=== PATIENT | female | born 1995 | race Caucasian/White ===

== ENCOUNTER → 2019-03-06 14:37 | Outpatient (CLI) | payer OTHER, MEDICAID, SELFPAY | PROVIDERS: Visit Provider Physician Assistant | DX: Z32.01 Encounter for pregnancy test, result positive (principal) | CPT/HCPCS: 36415; 84702 ==

== ENCOUNTER → 2019-03-24 14:10 | Outpatient (CLI) | payer OTHER, MEDICAID, SELFPAY ==
--- NOTE | 2019-03-24 14:12 | DI.US.S_ITS ---
PROCEDURE: US OB <= 14 WEEKS FETUS INDICATIONS: DATES OUTSIDE/PRIOR DATING DATA: Last menstrual period (LMP): Unknown LMP-based estimated date of delivery (PRADIP): N./A.. First dating scan (date and location): 03/24/19. Estimated date of delivery (PRADIP) from first dating scan: 11/14/19. TECHNIQUE: Real-time scanning was performed of the fetus and maternal pelvic organs, with image documentation. Endovaginal scanning was also performed to better visualize the fetus and maternal ovaries. COMPARISON: None. FINDINGS: Embryo: Paige-rump length measures 6 mm corresponding to 6 weeks 3 days. Heart rate measures 120 beats per minute. Measurement variability in dating: +/- 4 weeks by LMP, +/- 7 days by mean sac diameter (use before 6 weeks gestation if crown-rump length not able to be measured), +/- 5 days by crown-rump length (up to 8 weeks 6 days gestation), +/- 7 days by crown-rump length (up to 13 weeks 6 days gestation). Maternal organs: Adnexa within normal limits, with left corpus luteal cyst measuring 28 mm. Limited images through the kidneys demonstrate no hydronephrosis. IMPRESSION: 6 week 3 day single living IUP. Dictated by: Dez Longo [facility] Interpreted: Primo Chilel MD on 03/24/2019 at 14:53 Approved by: Primo Chilel M.D. on 03/24/2019 at 16:44
== END ==
PROVIDERS: Visit Provider Obstetrics & Gynecology
DX: Z34.91 Encounter for supervision of normal pregnancy, unspecified, first trimester (principal); Z3A.01 Less than 8 weeks gestation of pregnancy
CPT/HCPCS: 36415; 76801; 76817; 80055; 81003; 86703; 86787; 86803; 86850; 86900; 86901; 87077; 87086; 87147

== ENCOUNTER → 2019-03-24 16:13 | Outpatient (CLI) | payer OTHER, MEDICAID, SELFPAY ==
[2019-03-24 17:37] LABS: Add Manual Diff / Slide Review NO; Basophils Absolute Auto 0 /uL (0-100); Basophils Percent Auto 0.3 % (0-2); Eosinophils Absolute Auto 100 /uL (0-450); Eosinophils Percent Auto 1.2 % (2-4); Hematocrit 41.5 % (36-46); Hemoglobin 13.9 g/dL (12.0-16.0); Lymphocytes Absolute Auto 1700 /uL (1100-4500); Lymphocytes Percent Auto 20.6 % (25-40); Mean Corpuscular HGB Conc 33.6 % (30-36); Mean Corpuscular Hemoglobin 30.6 PG (26-34); Monocytes Absolute Auto 500 /uL (0-900); Monocytes Percent Auto 5.7 % (3-14); Neutrophils Absolute Auto 5900 /uL (1500-7000); Neutrophils Percent Auto 72.2 % (50-75); Platelet Count 220 X10^3/uL (150-400); Red Blood Cell Count 4.56 X10^6/uL (4.0-5.2); Red Cell Distribution Width 12.4 % (11.6-14.8); White Blood Cell Count 8.2 X10^3/uL (4.5-11.0)
[2019-03-24 17:43] LABS: Appearance Urine UA CLEAR; Bilirubin Urine UA NEGATIVE (NEGATIVE); Color Urine UA YELLOW; Glucose Urine UA NEGATIVE (Negative); Ketones Urine UA NEGATIVE (NEGATIVE); Leukocyte Esterase Urine UA NEGATIVE (NEGATIVE); Nitrite Urine UA NEGATIVE (Negative); Occult Blood Urine UA NEGATIVE (Negative); Protein Urine UA NEGATIVE (Negative); Specific Gravity Urine UA 1.015 (1.000-1.035); Urobilinogen Urine UA 0.2 E.U./dL (0.2)
[2019-03-24 18:39] LABS: Hepatitis B Surface Antigen NEGATIVE s/c (NEGATIVE); Rubella Antibody IgG 67.5 IU/mL (>15)
[2019-03-24 19:02] LABS: HIV 1 and 2 Antibody NEGATIVE (NEGATIVE); Hep C Virus Ab w/Reflex Quant NEGATIVE s/c (NEGATIVE)
[2019-03-26 13:17] LABS: RPR Screen Nonreactive (Nonreactive)
== END ==
PROVIDERS: Visit Provider Obstetrics & Gynecology
DX: Z34.91 Encounter for supervision of normal pregnancy, unspecified, first trimester (principal)
CPT/HCPCS: 36415; 80055; 81003; 86703; 86787; 86803; 86850; 86900; 86901; 87086

== ENCOUNTER → 2019-06-29 13:53 | Outpatient (CLI) | payer OTHER, MEDICAID, SELFPAY ==
--- NOTE | 2019-06-29 13:55 | DI.US.S_ITS ---
PROCEDURE: US OB >= 14 WEEKS FETUS INDICATIONS: ANATOMY SCAN OUTSIDE/PRIOR DATING DATA: Last menstrual period (LMP): Unknown. LMP-based estimated date of delivery (PRADIP): N./A.. First dating scan (date and location): 03/24/19. Estimated date of delivery (PRADIP) from first dating scan: 11/14/19. TECHNIQUE: Real-time scanning was performed of the fetus, with image documentation and biometric measurements. Endovaginal scanning: No COMPARISON: [facility], , OB <= 14 WEEKS FETUS, 04/17/2019, 16:49. FINDINGS: General: A single living intrauterine gestation is present. Presentation: Breech. Placenta: Placental position is anterior, posterior left lateral, without previa. Amniotic fluid index: 15.3 cm, normal range is 5-24 cm. heart rate: 135 beats per minute. Maternal cervical canal: 3.4 cm long. Normal lower limit is 2.5 cm. biometrics: Biparietal diameter: 20 weeks 1 day Head circumference: 20 weeks 1 day Abdominal circumference: 20 weeks 1 day Femur length: 19 weeks 6 days Estimated gestational age from initial scan: 20 weeks 2 days Composite gestational age from present scan: 20 weeks 0 days Estimated weight and percentile: 326 g; 30th percentile Measurement variability for biometric dating: +/- 7 days from 14 weeks to 15 weeks 6 days gestation, +/- 10 days from 16 weeks to 21 weeks 6 days gestation, +/- 2 weeks from 22 weeks to 27 weeks 6 days gestation, +/- 3 weeks for 28 weeks gestation or later. weight reference: 4500 g or EFW >90/95% is considered macrosomia or large for gestational age. EFW <10% is small for gestational age. EFW 5% or less is considered intra-uterine growth restriction. Anatomic survey: Neuro: Ventricles are non-dilated at less than 10 mm. Cisterna magna is normal at 3-11 mm. Cerebellum is normal in size and morphology. Nuchal skin fold: Normal at less than 6 mm between 14-21 weeks gestational age. Face: Nose and lips, facial profile are normal. Spine: No evidence for spina bifida. Heart: 4-chambered heart is present, with normal ventricular outflow tracts. Diaphragm: Diaphragm is intact. Stomach: Left-sided stomach is present. Kidneys: No hydronephrosis. Normal is less than 5 mm in 2nd trimester, less than 7 mm in 3rd trimester. Cord: 3-vessel cord has orthotopic insertion. Bladder: Normal in size. Extremities: All 4 extremities identified. IMPRESSION: 1. Normal interval growth. 2. Normal anatomic survey. Dictated by: Dez Longo [facility] Interpreted: Karen Hebert MD on 06/29/2019 at 16:27 Approved by: Karen Hebert MD, PhD on 06/29/2019 at 17:58
== END ==
PROVIDERS: PCP Physician Assistant Medical; Visit Provider Obstetrics & Gynecology
DX: Z34.02 Encounter for supervision of normal first pregnancy, second trimester (principal); Z3A.20 20 weeks gestation of pregnancy
CPT/HCPCS: 76811

== ENCOUNTER → 2019-08-03 13:36 | Outpatient (CLI) | payer OTHER, MEDICAID, SELFPAY ==
[2019-08-03 15:06] LABS: Hematocrit 29.3 % (36-46); Hemoglobin 10.1 g/dL (12.0-16.0)
[2019-08-03 17:18] LABS: GTT (PREG) 1 Hour PP 50gm Dose 82 mg/dL (76-139)
== END ==
PROVIDERS: PCP Physician Assistant Medical; Visit Provider Obstetrics & Gynecology
DX: Z34.02 Encounter for supervision of normal first pregnancy, second trimester (principal); Z3A.24 24 weeks gestation of pregnancy
CPT/HCPCS: 36415; 82950; 85014; 85018

== ENCOUNTER → 2019-08-24 16:32 | Outpatient (CLI) | payer OTHER, MEDICAID, SELFPAY ==
[2019-08-24 17:11] LABS: Add Manual Diff / Slide Review NO; Basophils Absolute Auto 0 /uL (0-100); Basophils Percent Auto 0.1 % (0-2); Eosinophils Absolute Auto 100 /uL (0-450); Eosinophils Percent Auto 1.2 % (2-4); Hematocrit 31.4 % (36-46); Hemoglobin 10.8 g/dL (12.0-16.0); Lymphocytes Absolute Auto 1300 /uL (1100-4500); Lymphocytes Percent Auto 15.9 % (25-40); Mean Corpuscular HGB Conc 34.3 % (30-36); Mean Corpuscular Hemoglobin 31.7 PG (26-34); Mean Corpuscular Volume 92.5 fL (80-100); Monocytes Absolute Auto 600 /uL (0-900); Neutrophils Absolute Auto 6200 /uL (1500-7000); Neutrophils Percent Auto 75.8 % (50-75); Platelet Count 196 X10^3/uL (150-400); Red Blood Cell Count 3.39 X10^6/uL (4.0-5.2); Red Cell Distribution Width 13.3 % (11.6-14.8); White Blood Cell Count 8.2 X10^3/uL (4.5-11.0)
[2019-08-24 18:52] LABS: HIV 1 & 2 Ab/Ag 4th Gen Combo NEGATIVE (NEGATIVE)
[2019-08-26 19:45] LABS: RPR Screen Nonreactive (Nonreactive)
== END ==
PROVIDERS: Family Provider Obstetrics & Gynecology; PCP Physician Assistant Medical; Visit Provider Obstetrics & Gynecology
DX: Z34.90 Encounter for supervision of normal pregnancy, unspecified, unspecified trimester (principal)
CPT/HCPCS: 36415; 85025; 86592; 87389

== ENCOUNTER 2019-09-10 00:48 | Observation (INO) | payer OTHER, MEDICAID, SELFPAY ==
[2019-09-10] MEDS: NIFEdipine 10 MG CAPSULE PO ×4 (01:38→02:55)
[2019-09-10] MEDS: LACTATED RINGERS 2,000 ML 1000 ML IV (01:38)
[2019-09-10] MEDS: CALCIUM CARBONATE 500 MG TAB 1000 MG PO (03:58)
[2019-09-10] MEDS: LACTATED RINGERS 1,000 ML 100 ML IV (03:58)
--- NOTE | 2019-09-10 07:00 | DI.US.S_ITS ---
PROCEDURE: US OB LIMITED INDICATIONS: BLEEDING, CONTRACTIONS OUTSIDE/PRIOR DATING DATA: Last menstrual period (LMP): Not available. LMP-based estimated date of delivery (PRADIP): Not available. First dating scan (date and location): 03/24/19. Estimated date of delivery (PRADIP) from first dating scan: 11/14/19. TECHNIQUE: Real-time scanning was performed of the fetus, with image documentation. Endovaginal scanning: Not needed for this study COMPARISON: [facility], OB >= 14 WEEKS FETUS, 09/07/2019, 16:34. [facility], OB >= 14 WEEKS FETUS, 06/29/2019, 14:11. [facility], OB <= 14 WEEKS FETUS, 04/17/2019, 16:49. [facility], US OB <= 14 WEEKS FETUS, 03/24/2019, 14:17. FINDINGS: A single living intrauterine gestation is present. Presentation: Breech. Placenta: Placental position is left-sided, without previa. Amniotic fluid index: 12.9 cm, normal range is 5-24 cm. heart rate: 141 beats per minute. Maternal cervical canal: 4.0 cm long. Normal lower limit is 2.5 cm. Estimated gestational age from initial scan: 30 weeks 5 days. IMPRESSION: No evidence for placental abruption, source of current symptoms is not seen. The delivery date is projected to be centered on 11/14/19 based on the first trimester OB ultrasound. Dictated by: Primo Chilel M.D. on 09/10/2019 at 8:26 Approved by: Primo Chilel M.D. on 09/10/2019 at 8:32
== END 2019-09-10 09:15 | disposition home or self-care (01) ==
PROVIDERS: Admitting Provider Obstetrics & Gynecology; Family Provider Obstetrics & Gynecology; PCP Physician Assistant Medical; Visit Provider Obstetrics & Gynecology
DX: O20.9 Hemorrhage in early pregnancy, unspecified (principal); O47.03 False labor before 37 completed weeks of gestation, third trimester; Z3A.30 30 weeks gestation of pregnancy
CPT/HCPCS: 59025; 59050; 76815; 76817; 96360; G0378; G0379

== ENCOUNTER → 2019-10-12 14:18 | Outpatient (CLI) | payer OTHER, MEDICAID, SELFPAY ==
[2019-10-13 15:19] LABS: Strep Grp B PCR NEG for Grp B Strep
== END ==
PROVIDERS: Family Provider Obstetrics & Gynecology; PCP Physician Assistant Medical; Visit Provider Obstetrics & Gynecology
DX: Z34.03 Encounter for supervision of normal first pregnancy, third trimester (principal)
CPT/HCPCS: 87653

== ENCOUNTER 2019-10-26 06:40 | Observation (INO) | payer OTHER, MEDICAID, SELFPAY | END 2019-10-26 12:18 | disposition home or self-care (01) | PROVIDERS: Admitting Provider Obstetrics & Gynecology; Family Provider Obstetrics & Gynecology; PCP Physician Assistant Medical; Visit Provider Obstetrics & Gynecology | DX: Z34.03 Encounter for supervision of normal first pregnancy, third trimester (principal); Z3A.38 38 weeks gestation of pregnancy | CPT/HCPCS: 59050; 59412; 76815; G0378; G0379 ==

== ENCOUNTER 2019-10-28 17:14 | Outpatient (CLI) | payer OTHER, MEDICAID, SELFPAY ==
--- NOTE | 2019-10-28 18:02 | PM.OBTRLD ---
Visit Information Visit Information Date of evaluation: 10/28/19 Primary OB Provider: Samantha Hough On-call OB Provider: Mariana Torres Reason for Evaluation: Yes rule out labor Comments/Additional reasons for admission: Right flank pain Vital Signs Vital Signs: Blood pressure 126/79, pulse 61, temperature 97.2? PFSH Social History Smoking Status: Former smoker Review of Systems Review of Systems Narrative: Patient is 37 and half weeks who had an attempt at version 2 days ago that was unsuccessful. She is having some abdominal discomfort but is not changed. For the last hour and a half the patient has had right flank discomfort and searing pain not crampy in nature. She denies any vaginal bleeding. She has been having some contractions but it does not seem that they have increased at all. She denies any unusual vaginal discharge. She denies any pain or burning when she urinates. ROS Unobtainable: All systems reviewed & are unremarkable except as noted in HPI and below Exam Narrative Exam Narrative: Patient does not have CVA tenderness. She is pointing to her right flank when she describes the pain. Abdomen is soft, nontender. Uterus is soft and nontender. Evaluation Evaluation Baseline heart rate: 140 Variability: Moderate (11-25) monitor accelerations: Present monitor decelerations: Absent Contraction Frequency (minutes): 10 Uterine Contraction Intensity: Mild Category of Tracing: I Diagnosis, Plan/Disposition Final Diagnosis (1) Right flank pain: Current Visit: Yes Status: Acute (2) 37 weeks gestation of : Current Visit: Yes Status: Acute Plan/Disposition Plan: Patient with right flank pain the most likely hydronephrosis. No evidence of other causes. Urine will be checked to make sure there is no infection. Patient to go home in lay on her left side and call if she has increasing pain, vaginal bleeding, increasing contractions. OB Disposition: home
[2019-10-28 18:31] LABS: Bacteria Urine None Seen; RBC Urine None Seen (0-5/HPF)
[2019-10-28 18:36] LABS: Appearance Urine UA CLEAR; Bilirubin Urine UA NEGATIVE (NEGATIVE); Color Urine UA YELLOW; Glucose Urine UA NEGATIVE (Negative); Ketones Urine UA NEGATIVE (NEGATIVE); Leukocyte Esterase Urine UA TRACE (NEGATIVE); Nitrite Urine UA NEGATIVE (Negative); Occult Blood Urine UA NEGATIVE (Negative); Protein Urine UA NEGATIVE (Negative); Urobilinogen Urine UA 0.2 E.U./dL (0.2)
[2019-10-28 18:42] LABS: Culture Indicated Urine Cult Not Indicated; WBC Urine 0-1/HPF (0-5/HPF)
== END 2019-10-28 18:46 | disposition home or self-care (01) ==
LOC: OB 10-29 11:41
PROVIDERS: Family Provider Obstetrics & Gynecology; PCP Physician Assistant Medical; Visit Provider Specialist
DX: O26.893 Other specified pregnancy related conditions, third trimester (principal); R10.9 Unspecified abdominal pain; Z3A.37 37 weeks gestation of pregnancy
CPT/HCPCS: 59025; 81001; G0378; G0379

== ENCOUNTER 2019-11-06 05:46 | Inpatient (IN) | payer OTHER, MEDICAID, SELFPAY ==
[2019-11-06] VITALS (7 sets, daily range): BP systolic 82–126; BP diastolic 44–63; PULSE 69–80; RESP 13–17; TEMP 36; O2SAT 98–100
[2019-11-06] MEDS: LACTATED RINGERS 1,000 ML 1000 ML IV (06:12)
[2019-11-06 06:31] LABS: Add Manual Diff / Slide Review NO; Basophils Absolute Auto 0 /uL (0-100); Basophils Percent Auto 0.2 % (0-2); Eosinophils Absolute Auto 100 /uL (0-450); Eosinophils Percent Auto 1.4 % (2-4); Hematocrit 34.9 % (36-46); Hemoglobin 11.8 g/dL (12.0-16.0); Lymphocytes Absolute Auto 2000 /uL (1100-4500); Lymphocytes Percent Auto 23.2 % (25-40); Mean Corpuscular HGB Conc 33.8 % (30-36); Mean Corpuscular Hemoglobin 30.9 PG (26-34); Mean Corpuscular Volume 91.6 fL (80-100); Monocytes Absolute Auto 700 /uL (0-900); Monocytes Percent Auto 8.5 % (3-14); Neutrophils Absolute Auto 5700 /uL (1500-7000); Neutrophils Percent Auto 66.7 % (50-75); Platelet Count 170 X10^3/uL (150-400); Red Blood Cell Count 3.81 X10^6/uL (4.0-5.2); Red Cell Distribution Width 14.8 % (11.6-14.8); White Blood Cell Count 8.5 X10^3/uL (4.5-11.0)
[2019-11-06] MEDS: LACTATED RINGERS 1,000 ML 100 ML IV ×4 (06:43→15:26)
--- NOTE | 2019-11-06 07:41 | P.HPOB_ITS ---
OB HPI Date/Time Date of admission: 11/06/19 Date Patient Seen: 11/06/19 Time Patient Seen: 07:35 History of Present Condition Chief complaint: [id number] PRIMARY : 1 Para: 0 Estimated Date of Delivery: 11/14/19 Estimated Gestational Age (weeks): 38w6d Narrative: Letitia Ro is a 24 year old at 38w6d presenting for scheduled primary for breech presentation. Pt feeling baby move regularly. No LOF, vaginal bleeding, contractions. complicated only by anemia, with pt taking an iron supplement. 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 Indications Operative indications ( section): malpresentation (breech) History of Present Ultrasounds: normal 1st trimester US and normal mid trimester US Obstetrical complications: none Medical complications: other (hx of HSV on prophylaxis) Preadmission Labs Blood type: B (+) positive -: Antibody screen: negative, GBS status: negative, HBsAG: negative, HIV: n egative and RPR/VDLR: negative -: Chlamydia screen: not detected and Gonorrhea screen: not detected -: Rubella: immune and Varicella: immune HCT: 29.3 HCAB: negative PAP: Abnormal (ASCUS HPV -) 1 hr GTT: 82 Evaluation Evaluation Baseline heart rate: 125 Variability: Moderate (11-25) monitor accelerations: Present monitor decelerations: Absent Laboratory results: Laboratory Tests 11/06/19 06:00 WBC 8.5 RBC 3.81 L Hgb 11.8 L Hct 34.9 L MCV 91.6 MCH 30.9 MCHC 33.8 RDW 14.8 Plt Count 170 Neut % (Auto) 66.7 Lymph % (Auto) 23.2 L [place] % (Auto) 8.5 Eos % (Auto) 1.4 L Baso % (Auto) 0.2 Neut # (Auto) 5700 Lymph # (Auto) 2000 [place] # (Auto) 700 Eos # (Auto) 100 Baso # (Auto) 0 PFSH Social History Smoking Status: Former smoker Meds Home Medications and Allergies Home Medications Medication Instructions Recorded Confirmed Type acyclovir 400 mg PO PRN PRN 03/06/19 11/06/19 History prenat.vits,bolivar,uuj-qdsk-bnyul 1 tab PO DAILY 03/24/19 11/06/19 History Double Electric breast Pump and #1 each 06/29/19 11/06/19 Rx Supplies Allergies Allergy/AdvReac Type Severity Reaction Status Date / Time No Known Drug Allergies Allergy Verified 11/02/19 12:13 Exam Vital Signs (past 8 hours): - 11/06/19 06:02 Blood Pressure 126/63 Narrative Exam Narrative: Gen: NAD, sitting comfortably in bed, appears well CV: RRR, no murmurs Resp: clear to auscultation bilaterally Abd: soft, nontender, gravid, nondistended Ext: no edema Objective Labs Result Diagrams: 11/06/19 06:00 Labs: Laboratory Results - last 24 hr 11/06/19 06:00 WBC 8.5 RBC 3.81 L Hgb 11.8 L Hct 34.9 L MCV 91.6 MCH 30.9 MCHC 33.8 RDW 14.8 Plt Count 170 Neut % (Auto) 66.7 Lymph % (Auto) 23.2 L [place] % (Auto) 8.5 Eos % (Auto) 1.4 L Baso % (Auto) 0.2 Neut # (Auto) 5700 Lymph # (Auto) 2000 [place] # (Auto) 700 Eos # (Auto) 100 Baso # (Auto) 0 Assessment and Plan Assessment and Plan Assessment and Plan narrative: 24yo at 38w6d her for primary for persistent breech presentation, failed version. Breech confirmed today. Pt consented for surgery in clinic previously. Reviewed risks today including but not limited to infection, bleeding/hemorrhage, injury to other organs including bowel and bladder, and injury to baby. Pt is agreeable to blood transfusion if medically indicated. She again consents for surgery today. She will receive 2g Ancef prior to surgery.
--- NOTE | 2019-11-06 07:41 | PM.PREOP ---
Pre-operative Note Interval Note History & Physical reviewed/Exam performed by Physician: Yes Changes to H&P: No
[2019-11-06] MEDS: CEFAZOLIN 2 GM/100 ML FROZ.PIGGY IV (08:05)
--- NOTE | 2019-11-06 08:33 | SUR.OPER ---
Supine on Padded OR bed, head on pillow, safety belt at thigh, arms secured on padded arm boards at <90 degrees abduction. Bump under right buttock. Legs uncrossed , gel pad to heels, tape over blanket to lower legs.
--- NOTE | 2019-11-06 11:55 | PM.OP.1 ---
Operative Date/Time/Diagnoses Date of procedure: 11/06/19 Time of procedure: 07:45 Pre-op diagnosis: 38w6d gestation Breech presentation Post-op diagnosis: same Procedure & Clinicians Procedure: Primary Same procedure as scheduled: Yes Indications: Breech presentation Surgeon: Lien Lai Offensive Coordinator: Corrine Denney Click Yes if Unassisted: No Anesthesia Type: Spinal Operative Notes Findings: Normal uterus, ovaries, and tubes Closure Type: primary Specimen(s): none sent Applied: catheter Estimated Blood Loss (mL): 750 Blood products transfused: none Procedure in detail: The patient was taken to the operating room where spinal anesthesia was placed. She was then prepared and draped in the normal sterile fashion in the dorsal supine position with a leftward tilt. Anesthesia was tested and found to be adequate. A Pfannensteil skin incision was then made with the scalpel and carried through to the underlying layer of fascia with the scalpel. The fascia was incised in the midline and the incision extended laterally with the Tapia scissors. The superior aspect of the fascial incision was then grasped with Mg clamps, elevated, and the underlying rectus muscles dissected off bluntly and sharply where needed. Attention was then turned to the inferior aspect of the incision which, in a similar fashion, was grasped, tented up with Mg clamps, and the rectus muscle dissected off bluntly and sharply with Tapia scissors. The rectus muscles were then in the midline, and the peritoneum was identified and entered bluntly. The peritoneal incision was then extended with good visualization of the bladder. The bladder blade was then inserted and the vesicouterine peritoneum identified, grasped with pick-ups and entered sharply with the Metzenbaum scissors. The incision was then extended laterally and the bladder flap created digitally. The bladder blade was then reinserted and the lower uterine segment incised in a transverse fashion with the scalpel. The uterine incision was then extended by pulling superolaterally on both sides. Membranes were ruptured and fluid was clear. The bladder blade was removed and the infant's legs and abdomen were delivered. Anterior arm was then delivered, and then the rotated for delivery of the other arm. The infant was then turned onto the maternal abdomen, and the head delivered atraumatically. The nose and mouth were suctioned with bulb suction and the cord was clamped and cut. The infant was handed off to the waiting nursing staff. Cord blood was collected for Rh status. The placenta was then delivered with gentle cord traction. The uterus was then exteriorized and cleared of all clots and debris. The uterine incision was repaired with O-Vicryl in a running, locked fashion. A second layer of the same suture was used to obtain excellent hemostasis. The uterus was returned to the abdomen. The gutters were cleared of all clots. Hysterotomy was investigated and found to be hemostatic. The peritoneum was closed with 3-O Vicryl. The fascia was reapproximated with O Vicryl in a running fashion. The subcutaneous tissue was reapproximated with 3-O Vicryl in interrupted fashion. The skin was closed with 4-O Vicryl. ROM APPEARANCE: Clear BABY A DELIVERY TIME: 8:37am BABY A OUTCOME: Viable BABY A SEX: Female BABY A WEIGHT: 7lb9.2oz BABY A NUCHAL CORD: No BABY A # CORD VESSELS: 3 BABY A 1 MINUTE: 6 BABY A 5 MINUTES: 9 PLACENTA DELIVERY TIME: 8:42am PLACENTAL DELIVERY TYPE: Spontaneous PLACENTA APPEARANCE: Intact COMPLICATIONS: None SPONGE AND NEEDLE COUNTS: Correct x3. DRESSING: Aquacel ANTICOAGULATION: SCDs applied prior to Surgery: Yes Preop antibiotics given (see MAR). The patient was taken to recovery room having tolerated procedure well. Complications: none Post-operative Condition: stable Disposition: PACU Plan for aftercare: Normal postoperative care support
[2019-11-06] MEDS: METOCLOPRAMIDE 10 MG/2 ML INJ 5 MG IV (13:47)
[2019-11-06] MEDS: KETOROLAC 30 MG/ML VIAL IV ×2 (15:24→21:25)
[2019-11-06] MEDS: ONDANSETRON 4 MG/2 ML INJ IV (16:05)
[2019-11-07] MEDS: KETOROLAC 30 MG/ML VIAL IV (04:09)
[2019-11-07 06:25] LABS: Hematocrit 24.3 % (36-46); Hemoglobin 8.4 g/dL (12.0-16.0)
[2019-11-07 08:40] VITALS: BP 112/62; PULSE 84; RESP 16; TEMP 36.9
--- NOTE | 2019-11-07 09:28 | PM.OBPN.1 ---
Subjective - OB Subjective Date Patient Seen: 11/07/19 Time Patient Seen: 09:00 Interval history: The pt reports that she is feeling very. Baby has been latching well, and giving good feeding queues. She is ambulating without difficulty and minimal pain. Her pain overall is well controlled. She has passed flatus. Her lochia is appropriate. She still would like to try and avoid the narcotic pain medication if possible. Exam Vital Signs (past 8 hours): Oxygen Delivery Method Room Air Narrative Exam Narrative: Gen: NAD, sitting comfortably in bed, appears well holding her infant CV: RRR, no murmurs Resp: clear to auscultation bilaterally Abd: soft, appropriately tender, nondistended, normoactive bowel sounds, dressing c/d/i Ext: no edema Objective Labs Result Diagrams: 11/07/19 06:15 Labs: Laboratory Results - last 24 hr 11/07/19 06:15 Hgb 8.4 L Hct 24.3 L Assessment & Plan Assessment and Plan (1) S/P : Status: Acute Current Visit: Yes (2) anemia: Status: Acute Current Visit: Yes Plan Comments: 24yo POD #1 s/p primary for breech presentation. Pt doing very well thus far. Does have significant anemia due to acute blood loss from surgery, however had anemia prior to surgery as well. - Continue PO iron supplement - Normal care - Encouraged ambulation - support - Will use Ibuprofen/Tylenol primarily for pain control, Percocet only if needed Time Spent With Patient Time: Total time spent is greater than 50% in coordination of care (as documented) at patient's floor/unit and/or counseling patient: Time with patient: 15-24 minutes
[2019-11-07] MEDS: IBUPROFEN 600 MG TABLET PO ×2 (10:15→16:40)
[2019-11-07] MEDS: PRENATAL VIT,CALC/IRON/FOLIC 1 TABLET 1 TAB PO (10:16)
[2019-11-07] MEDS: FERROUS GLUCONATE 324 MG TABLET PO (10:16)
[2019-11-07] MEDS: DOCUSATE 250 MG CAPSULE PO (10:16)
[2019-11-07] MEDS: OXYCODONE/ACETAMINOPHEN 5/325 TABLET 1 TAB PO ×3 (12:17→21:55)
[2019-11-07] MEDS: LANOLIN OINT 7 GM 1 APPLIC TOP (12:19)
[2019-11-08] MEDS: IBUPROFEN 600 MG TABLET PO ×3 (00:06→12:26)
[2019-11-08] MEDS: OXYCODONE/ACETAMINOPHEN 5/325 TABLET 1 TAB PO ×2 (02:25→11:21)
[2019-11-08] MEDS: FERROUS GLUCONATE 324 MG TABLET PO (08:51)
[2019-11-08] MEDS: PRENATAL VIT,CALC/IRON/FOLIC 1 TABLET 1 TAB PO (08:51)
--- NOTE | 2019-11-08 10:09 | PM.OBDS.1 ---
Discharge Providers Provider Date of admission: 11/06/19 05:46 Discharge Date: 11/08/19 Primary care physician: Krystle Rose PA-C Consults: 11/06/19 10:13 Consult to Geosciences Faculty Member Routine Comment: Discharge provider: Lien Lai MD Summary Hospital Course Date Patient Seen: 11/08/19 Time Patient Seen: 09:30 Procedures: Primary Hospital Course: The patient was admitted for primary due to persistent breech presentation. The surgery was without complications and she delivered a viable baby girl. , the patient recovered well. At the time of discharge she was voiding, ambulating, and passing flatus without difficulty. Her pain was adequately controlled. Her lochia was decreasing appropriately. She was breast-feeding with good latch, and felt her milk had come in. She will follow up in clinic in 1 week for incision check. She will continue her iron supplement at home for anemia. Peripartum Data Delivery Method: Section Procedures: Primary complications: none [place] 1: Gender: Female Disposition of : home Discharge Diagnosis (1) S/P : Status: Acute (2) anemia: Status: Acute Status at Discharge Cognitive/behavioral status at discharge: oriented Functional status at discharge: independent ambulation Overall status at discharge: patient is progressing back to baseline Time Spent with Patient Time attestation: Total time spent providing and/or coordinating discharge services: Time spent: Greater than 30 minutes Specific discharge activities: No intercourse for 6 weeks No heavy lifting or strenuous activity Objective Labs Result Diagrams: 11/07/19 06:15 Exam Vital Signs (past 8 hours): Oxygen Delivery Method Room Air Narrative Exam Narrative: Gen: NAD, sitting comfortably in bed, appears well holding her CV: RRR, no murmurs Resp: clear to auscultation bilaterally Abd: soft, appropriately tender, nondistended, normoactive bowel sounds, dressing c/d/i Ext: no edema Discharge Plan Discharge orders & Medications Discharge Orders: Discharge (Order); Ordered 11/08/19 Ordered By: Lien Lai Prescriptions: New acetaminophen 325 mg Tablet 650 mg PO Q6HR PRN (Reason: Fever/Mild Pain (1-3)) Qty: 30 RF: 0 oxycodone-acetaminophen 5-325 mg Tablet 1 tab PO Q4HR PRN (Reason: Pain, Moderate (4-6)) Qty: 30 RF: 0 ibuprofen 600 mg Tablet 600 mg PO Q6HR PRN (Reason: Fever/Mild Pain (1-3)) Qty: 60 RF: 0 docusate sodium 250 mg Capsule 250 mg PO DAILY Qty: 30 RF: 0 Vwv-J-Lwehux Cream 1 applic topical PRN PRN (Reason: ) Qty: 30 RF: 0 ferrous gluconate 324 mg (38 mg iron) Tablet 324 mg PO DAILY Qty: 30 RF: 0 Continued prenat.vits,bolivar,zqz-gqkz-hrnju tablet 1 tab PO DAILY RF: 0 (DME) Double Electric breast Pump and Supplies See Rx Instructions .ROUTE .MEDSUPPLY Qty: 1 RF: 0 Discontinued acyclovir 400 mg PO PRN PRN (Reason: Outbreak) RF: 0 Follow up/Referrals: Lien Lai MD [Physician] - 11/13/19 1:45 pm Krystle Rose PA-C [Primary Care Provider] - Visit Report/Discharge Packet Visit Report Forms: Patient Portal/API, Stroke Signs & Symptoms Discharge Data Primary Care Provider: Krystle Rose
== END 2019-11-08 13:02 | disposition home or self-care (01) | DRG 540 ==
PROVIDERS: Admitting Provider Family Medicine; Family Provider Obstetrics & Gynecology; PCP Physician Assistant Medical; Visit Provider Family Medicine
PROC: 10D00Z1 Extraction of Products of Conception, Low, Open Approach (ICD-10-PCS; CPT 59514; principal; 2019-11-06 07:45)
DX: O64.1XX0 Obstructed labor due to breech presentation, not applicable or unspecified (principal); Z3A.38 38 weeks gestation of pregnancy; Z37.0 Single live birth; O98.32 Other infections with a predominantly sexual mode of transmission complicating childbirth; B00.9 Herpesviral infection, unspecified; O90.81 Anemia of the puerperium; D62 Acute posthemorrhagic anemia
CPT/HCPCS: 36415; 59050; 59514; 85014; 85018; 85025; 86850; 86900; 86901; J0690; J1885; J2274; J2405; J2590; J2765

== ENCOUNTER → 2023-01-28 15:37 | Outpatient (CLI) | payer OTHER, MEDICAID, SELFPAY ==
--- NOTE | 2023-01-28 15:38 | DI.US.S_ITS ---
PROCEDURE: US OB <= 14 WEEKS FETUS INDICATIONS: dating and viability OUTSIDE/PRIOR DATING DATA: Last menstrual period (LMP): 12/12/2022 LMP-based estimated date of delivery (PRADIP): 09/18/2023. First dating scan (date and location): 01/28/2023. Estimated date of delivery (PRADIP) from first dating scan: 09/20/2023. TECHNIQUE: Real-time scanning was performed of the fetus and maternal pelvic organs, with image documentation. Endovaginal scanning was also performed to better visualize the fetus and maternal ovaries. COMPARISON: [facility], , US OB <= 14 WEEKS FETUS, 04/17/2019, 16:49. FINDINGS: Embryo: [place]-rump length measures 6 mm corresponding to 6 weeks 3 days. Tiny perigestational sac bleed site. Heart rate: 128 Maternal organs: Ovaries within normal limits. IMPRESSION: 6 week 3 day single living IUP. We strive to produce accurate, complete, and clear reports of imaging services. To assist us in improving patient care, this report was composed using standard report templates and voice recognition software. Therefore, it may contain abnormal punctuation, insertions and/or omissions. Occasional wrong-word or sound-alike substitutions may occur. Though we review the report and make efforts to correct it, we do recommend that the report be read carefully in proper context to recognize any text inaccuracies. Dictated by: Dez REYNOLDS Interpreted: Herve Bran MD on 01/28/2023 at 16:35 Transcribed by: ANTOINETTE on 01/28/2023 at 16:36 Approved by: Trey Bran M.D. on 01/30/2023 at 16:22
== END ==
PROVIDERS: Family Provider Obstetrics & Gynecology; PCP Family Medicine; Referring Provider Obstetrics & Gynecology; Visit Provider Obstetrics & Gynecology
DX: Z34.81 Encounter for supervision of other normal pregnancy, first trimester (principal); Z3A.01 Less than 8 weeks gestation of pregnancy
CPT/HCPCS: 76801

== ENCOUNTER → 2023-02-20 15:19 | Outpatient (CLI) | payer OTHER, MEDICAID, SELFPAY | PROVIDERS: Family Provider Obstetrics & Gynecology; PCP Family Medicine; Visit Provider Obstetrics & Gynecology | DX: Z34.81 Encounter for supervision of other normal pregnancy, first trimester (principal) | CPT/HCPCS: 87086 ==

== ENCOUNTER → 2023-03-25 15:26 | Outpatient (CLI) | payer OTHER, MEDICAID, SELFPAY ==
[2023-03-25 17:09] LABS: Add Manual Diff / Slide Review NO; Basophils Absolute Auto 0 /uL (0-100); Basophils Percent Auto 0.3 % (0-2); Eosinophils Absolute Auto 100 /uL (0-450); Eosinophils Percent Auto 1.7 % (2-4); Hematocrit 36.4 % (36-46); Hemoglobin 12.9 g/dL (12.0-16.0); Lymphocytes Absolute Auto 1400 /uL (1100-4500); Lymphocytes Percent Auto 22.5 % (25-40); Mean Corpuscular HGB Conc 35.4 % (30-36); Mean Corpuscular Hemoglobin 31.1 PG (26-34); Mean Corpuscular Volume 87.9 fL (80-100); Monocytes Absolute Auto 300 /uL (0-900); Monocytes Percent Auto 5.1 % (3-14); Neutrophils Absolute Auto 4500 /uL (1500-7000); Neutrophils Percent Auto 70.4 % (50-75); Platelet Count 193 X10^3/uL (150-400); Red Blood Cell Count 4.14 X10^6/uL (4.0-5.2); Red Cell Distribution Width 13.3 % (11.6-14.8); White Blood Cell Count 6.4 X10^3/uL (4.5-11.0)
[2023-03-25 17:59] LABS: Hepatitis B Surface Antigen NEGATIVE s/c (NEGATIVE); Rubella Antibody IgG 47.8 IU/mL (>15)
[2023-03-25 18:59] LABS: HIV 1 & 2 Ab/Ag 4th Gen Combo NEGATIVE (NEGATIVE); Hep C Virus Ab w/Reflex Quant NEGATIVE s/c (NEGATIVE)
[2023-03-26 07:43] LABS: RPR Screen Non Reactive (Non Reactive)
[2023-03-26 11:32] LABS: Varicella IgG Antibody 885 index (Immune >165)
== END ==
PROVIDERS: Family Provider Obstetrics & Gynecology; PCP Family Medicine; Referring Provider Obstetrics & Gynecology; Visit Provider Obstetrics & Gynecology
DX: Z34.81 Encounter for supervision of other normal pregnancy, first trimester (principal)
CPT/HCPCS: 36415; 80055; 86787; 86803; 86850; 86900; 86901; 87389

== ENCOUNTER → 2023-05-01 14:35 | Outpatient (CLI) | payer OTHER, MEDICAID, SELFPAY ==
--- NOTE | 2023-05-01 14:36 | DI.US.S_ITS ---
PROCEDURE: US OB >= 14 WEEKS FETUS INDICATIONS: ANATOMY OUTSIDE/PRIOR DATING DATA: Last menstrual period (LMP): 12/12/2022. LMP-based estimated date of delivery (PRADIP): 09/18/2023. First dating scan (date and location): 01/28/2023. Estimated date of delivery (PRADIP) from first dating scan: 09/20/2023. The calculations are made using the clinical PRADIP of 09/18/2023. TECHNIQUE: Real-time scanning was performed of the fetus, with image documentation and biometric measurements. COMPARISON: OB ultrasound 01/28/2023 FINDINGS: General: A single living intrauterine gestation is present. Presentation: Breech. Placenta: Placental position is posterior , without previa. Amniotic fluid index: 17.4 cm, normal range is 5-24 cm. Single deepest vertical pocket is 7.1 cm. heart rate: 143 beats per minute. Maternal cervical canal: 3.3 cm long. Normal lower limit is 2.5 cm. biometrics: Biparietal diameter: 4.7 cm 20 weeks 1 day Head circumference: 17.9 cm 20 weeks 2 days Abdominal circumference: 15.2 cm 20 weeks 3 days Femur length: 3.2 cm 20 weeks 1 day Clinically estimated gestational age: 20 weeks 0 days Composite gestational age from present scan: 20 weeks 2 days Estimated weight and percentile: 342 g, 60 ethmoid percentile Anatomic survey: Neuro: Ventricles are non-dilated at less than 10 mm. Cisterna magna is normal at 3-11 mm. Cerebellum is normal in size and morphology. Nuchal skin fold: Normal at less than 6 mm between 14-21 weeks gestational age. Face: Nose and lips, facial profile are normal. Spine: No evidence for spina bifida. Heart: 4-chambered heart is present, with normal ventricular outflow tracts. Diaphragm: Diaphragm is intact. Stomach: Left-sided stomach is present. Kidneys: No hydronephrosis. Normal is less than 5 mm in 2nd trimester, less than 7 mm in 3rd trimester. Cord: 3-vessel cord has orthotopic insertion. Bladder: Normal in size. Extremities: All 4 extremities identified. IMPRESSION: Single live intrauterine with ultrasound gestational age of 20 weeks 2 days. Anatomy is within normal limits. We strive to produce accurate, complete, and clear reports of imaging services. To assist us in improving patient care, this report was composed using standard report templates and voice recognition software. Therefore, it may contain abnormal punctuation, insertions and/or omissions. Occasional wrong-word or sound-alike substitutions may occur. Though we review the report and make efforts to correct it, we do recommend that the report be read carefully in proper context to recognize any text inaccuracies. Dictated by: Gemini Caruso M.D. on 05/01/2023 at 16:45 Approved by: Gemini Caruso M.D. on 05/01/2023 at 16:46
[2023-05-03 20:44] LABS: AFP, Serum 50.5 ng/mL (.); Estriol, Free 1.82 ng/mL (.); Inhibin A, Dimeric 112.39 pg/mL (.); Inhibin A, MoM 0.54 (.); Maternal Ethnicity Caucasian (.); Maternal Weight 126 lbs (.); Number of Fetuses No (.); OSBR Risk 1 IN 10000 (.); Results Report (.); Test Results *Screen Negative* (.); hCG, MoM 0.74 (.); hCG, Serum 21186 mIU/mL (.)
== END ==
PROVIDERS: Family Provider Obstetrics & Gynecology; PCP Family Medicine; Referring Provider Obstetrics & Gynecology; Visit Provider Obstetrics & Gynecology
DX: Z34.82 Encounter for supervision of other normal pregnancy, second trimester (principal); Z3A.20 20 weeks gestation of pregnancy
CPT/HCPCS: 36415; 76811; 82105; 82677; 84702; 86336

== ENCOUNTER → 2023-07-03 14:30 | Outpatient (CLI) | payer OTHER, MEDICAID, SELFPAY ==
[2023-07-03 16:41] LABS: Hematocrit 32.9 % (36-46); Hemoglobin 11.5 g/dL (12.0-16.0)
[2023-07-03 16:46] LABS: GTT (PREG) 1 Hour PP 50gm Dose 70 mg/dL (76-139)
[2023-07-03 17:19] LABS: TSH w/ Reflex to FT4 1.25 uIU/mL (0.47-4.68)
== END ==
PROVIDERS: Family Provider Obstetrics & Gynecology; PCP Family Medicine; Referring Provider Specialist; Visit Provider Specialist
DX: R42 Dizziness and giddiness (principal); Z34.82 Encounter for supervision of other normal pregnancy, second trimester; Z3A.26 26 weeks gestation of pregnancy
CPT/HCPCS: 36415; 82950; 84443; 85014; 85018

== ENCOUNTER → 2023-08-28 15:14 | Outpatient (CLI) | payer OTHER, MEDICAID, SELFPAY ==
[2023-08-30 08:27] LABS: Strep Grp B PCR NEG for Grp B Strep
== END ==
PROVIDERS: Family Provider Obstetrics & Gynecology; PCP Family Medicine; Visit Provider Student in an Organized Health Care Education/Training Program
DX: Z3A.37 37 weeks gestation of pregnancy (principal); Z34.83 Encounter for supervision of other normal pregnancy, third trimester
CPT/HCPCS: 87653

== ENCOUNTER 2023-09-09 05:46 | Inpatient (IN) | payer OTHER, MEDICAID, SELFPAY ==
[2023-09-09 06:22] LABS: Add Manual Diff / Slide Review NO; Basophils Absolute Auto 0 /uL (0-100); Basophils Percent Auto 0.6 % (0-2); Eosinophils Absolute Auto 100 /uL (0-450); Eosinophils Percent Auto 1.5 % (2-4); Hematocrit 33.1 % (36-46); Hemoglobin 11.5 g/dL (12.0-16.0); Lymphocytes Absolute Auto 1700 /uL (1100-4500); Lymphocytes Percent Auto 19.8 % (25-40); Mean Corpuscular HGB Conc 34.7 % (30-36); Mean Corpuscular Volume 92.5 fL (80-100); Monocytes Absolute Auto 700 /uL (0-900); Monocytes Percent Auto 8.4 % (3-14); Neutrophils Absolute Auto 5900 /uL (1500-7000); Neutrophils Percent Auto 69.7 % (50-75); Platelet Count 147 X10^3/uL (150-400); Red Blood Cell Count 3.58 X10^6/uL (4.0-5.2); Red Cell Distribution Width 14.3 % (11.6-14.8); White Blood Cell Count 8.5 X10^3/uL (4.5-11.0)
[2023-09-09] MEDS: CITRIC ACID/SODIUM CITRATE 15 ML SOLUTION 30 ML PO (07:29)
[2023-09-09] MEDS: LACTATED RINGERS 1,000 ML 999 ML IV ×2 (07:29→08:24)
--- NOTE | 2023-09-09 07:29 | P.HPOB_ITS ---
OB HPI Date/Time Date of admission: 09/09/23 Date Patient Seen: 09/09/23 Time Patient Seen: 07:29 History of Present Condition Chief complaint: Repeat PRADIP Calculator 2 Estimated Delivery Date Method Current WG Current Estimate 09/16/23 LMP (Uncertain) 39w 0d Other Estimates 09/20/23 Ultrasound #1 38w 3d Estimated Gestational Age (weeks): 39 : 2 Para: 1 care: good care, initiated at week # (10), number of visits (10) and pounds weight gain (37) Dating criteria OB: LMP confirmed by 1st trimester US Ultrasounds: normal 1st trimester US and normal mid trimester US Obstetrical complications: none Medical complications OB: none Indications Operative indications ( section): previous uterine surgery Preadmission Labs Last OB Lab Results: 2 Blood Type B Positive 03/25/23 15:30 Antibody Screen Negative 03/25/23 15:30 Hematocrit 33.1 % (36-46) L 09/09/23 06:10 Hemoglobin 11.5 g/dL (12.0-16.0) L 09/09/23 06:10 Hepatitis B Surface Antigen Negative s/c (NEGATIVE) 03/25/23 15 :30 Hepatitis C Antibody Negative s/c (NEGATIVE) 03/25/23 15:30 Rubella Antibody 47.8 IU/mL (>15) 03/25/23 15:30 Varicella-Zoster IgG Antibody 885 index (Immune >165) 03/25/23 15:30 Glucose 1 Hour 70 mg/dL (76-139) L 07/03/23 15:54 Group B Streptococcus (PCR) Neg for grp b strep 08/28/23 15:14 -: Chlamydia screen: negative and Gonorrhea screen: negative -: PAP smear: Normal Genetic Screens: Quad screen: Normal Prior (ies) Past Pregnancies Del. Date GA/Weeks Labor Lgth Wt Sex Route Outcome Anesthesia Place Delv Breastfeed Preg Comp Name 11/06/19 39 8 lb 8 oz Female live - full term IH 20 months labor [place] Delivery Date: 11/06/19 Last Updated by: Dali Celeste RN C/S for breech Evaluation Evaluation Baseline heart rate: 130 Variability: Moderate (11-25) monitor accelerations: Present Monitor Decelerations: Absent Status: Category l PFSH Medical History (Updated 08/16/23 @ 17:51 by Samantha Hough MD) HSV-2 infection anemia Surgical History (Updated 02/06/23 @ 13:10 by Dali Celeste, RN) History of removal of skin mole [place] teeth extracted S/P Family History (Updated 02/06/23 @ 13:14 by Dali Celeste, RN) Mother Hypertension COPD (chronic obstructive pulmonary disease) Father Hypertension Mental health problem Family/Other Cancer Brother Bipolar disorder Schizophrenia Substance abuse Family/Other Substance abuse Mental health problem Social History marital status: unmarried,single household members: children lives independently: Yes caregiver/support person: Yes housing: condominium (duplex home) pets and animals: Yes (1 dog) education level: college (murali's degree) occupational status: previously employed (corporate compliance director, 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 current occupational exposures/hazards: No special solitario needs: No travel history: recent ([place]) seatbelt use: always water heater temp set < 120 deg: Yes working smoke detector in home: Yes fire extinguisher in home: Yes carbon monox detector in home: Yes firearms in home: Yes firearms unloaded and locked: No do you feel safe at home: Yes Smoking Status: Former smoker (quit 2017 (age 22)) second hand exposure: No alcohol intake: former (2-4/week when not ) substance use type: does not use during the past year weight has: remained stable well-balanced diet: rarely or never daily servings fruits/ve-1 caffeine: No Type(s) of exercise: none Meds Home Medications and Allergies Home Medications Medication Instructions Recorded Confirmed Type acyclovir 400 mg tablet 400 mg PO TID PRN herpes outbreak 08/15/22 09/03/23 Rx #30 tabs prenat.vits,bolivar,ard-flbc-ipdvc 1 tab PO DAILY 02/06/23 09/03/23 History hydroxyzine HCl 25 mg tablet 25 mg PO TID PRN anxiety #30 tabs 02/20/23 09/03/23 Rx Allergies Allergy/AdvReac Type Severity Reaction Status Date / Time No Known Drug Allergies Allergy Verified 09/03/23 12:14 OB Exam Narrative Exam Narrative: Generally: Patient is sitting up in bed, no acute distress Lungs: Clear to auscultation bilaterally Cardiovascular: Regular rate and rhythm Fundal height: 39 cm Estimated weight: 8 lb Extremities: No edema Objective Labs 09/09/23 06:10 Labs: Laboratory Results - last 24 hr 09/09/23 06:10 WBC 8.5 RBC 3.58 L Hgb 11.5 L Hct 33.1 L MCV 92.5 MCH 32.0 MCHC 34.7 RDW 14.3 Plt Count 147 L Neut % (Auto) 69.7 Lymph % (Auto) 19.8 L [place] % (Auto) 8.4 Eos % (Auto) 1.5 L Baso % (Auto) 0.6 Neut # (Auto) 5900 Lymph # (Auto) 1700 [place] # (Auto) 700 Eos # (Auto) 100 Baso # (Auto) 0 Assessment and Plan Assessment and Plan Assessment and Plan narrative: Assessment: 28-year-old 2 para 1 at 39 weeks' gestation with a previous section Plan: Repeat low-transverse section The risks, benefits, and alternatives to the procedure were explained to the patient. The risks including bleeding, infection, injury to the bowel, bladder, or ureters. She understands these risks and agrees to proceed. A full par Q was held and consent form was signed. Time Spent with Patient Total time spent with greater than 50% in coordination of care (as documented) at patient's floor/unit and/or counseling patient:: less than 15 minutes
[2023-09-09] MEDS: CEFAZOLIN 2 GM/100 ML PREMIX 100 ML IV (08:01)
--- NOTE | 2023-09-09 08:13 | SUR.OPER ---
Supine on Padded OR bed, head on pillow, safety belt at thigh, arms secured on padded arm boards at <90 degrees abduction. Bump under right buttock. Legs uncrossed with pillow under knees, gel pad to heels, tape over blanket to lower legs.
--- NOTE | 2023-09-09 08:33 | SUR.OPER ---
Viable baby boy born at 0833. Placenta delivered at 0836. 9 & 9. Cord blood and placenta delivered to OB RN.
--- NOTE | 2023-09-09 08:38 | SUR.OPER ---
Vacuum used x3 attempts to deliver .
[2023-09-09 09:30] VITALS: BP 113/65; PULSE 78; RESP 15; TEMP 36.2; O2SAT 100
[2023-09-09] MEDS: ONDANSETRON 4 MG/2 ML INJ IV (09:30)
[2023-09-09 09:35] VITALS: BP 119/71; PULSE 78; RESP 12; O2SAT 100
[2023-09-09 09:40] VITALS: BP 119/65; PULSE 70; RESP 12; TEMP 36.2; O2SAT 100
--- NOTE | 2023-09-09 09:40 | PM.PREOP ---
Pre-operative Note Interval Note History & Physical reviewed/Exam performed by Physician: Yes Changes to H&P: No H&P completed within 30 days and has changed as indicated here:: 09/09/23
--- NOTE | 2023-09-09 09:41 | PM.OBCS.1 ---
Operative Date/Time/Diagnoses Date of procedure: 09/09/23 Time of procedure: 09:41 Pre-op diagnosis: 39 weeks gestation Previous C section Post-op diagnosis: same Procedure & Clinicians Procedure: Repeat low transverse c section Same procedure as scheduled: Yes Indications: 28 year old with previous C section, now at 39 weeks gestation Surgeon: Samantha Hough Click Yes if Unassisted: No Voice Data Communications Engineer: Maddy Greenfield Reason for Voice Data Communications Engineer: The trade sales assistant was necessary to retract upon entry into the abdomen uterus. She assisted with delivery of the with fundal pressure. She assisted with closure with retraction, clipping of suture, and closure of the contralateral fascia. Anesthesia Type: Spinal (With Duramorph) Operative Notes Findings: Live male infant in the DEYANIRA presentation Normal uterus, tubes, and ovaries Closure Type: primary Specimen(s): cord blood and placenta Intraoperative meds administered: Acetaminophen, Duramorph, Ketorolac and Pitocin Applied: Catheter (To continuous drainage) Estimated Blood Loss (mL): 400 Blood products transfused: none Procedure in detail: The patient was taken to the operating room where she was placed in the seated position. After spinal anesthesia with Duramorph was administered, she was placed in the dorsal supine position with a leftward tilt, and prepped and draped in the usual sterile fashion. A time-out was performed. After spinal anesthesia was found be adequate, a Pfannenstiel skin incision was made through the previous incision and carried through to the underlying layer of fascia. The fascia was nicked in the midline and the incision extended bilaterally with the Tapia scissors. The superior aspect of the fascial incision was grasped with the Mg clamps, elevated, and the underlying rectus muscles dissected off sharply and bluntly. Attention was then turned to the inferior aspect of the fascial incision which was grasped with a Mg, elevated, and the underlying rectus muscles dissected off sharply and bluntly. The rectus muscles were in the midline. The peritoneum was identified, grasped between 2 hemostats, and entered sharply with the Metzenbaum scissors. This incision was extended superiorly and inferiorly with good visualization of the bladder. The bladder blade was inserted. The vesicouterine peritoneum was identified, grasped with a pickup, and entered sharply with the Metzenbaum scissors. This incision was extended bilaterally, and the bladder flap created digitally. The bladder blade was reinserted. The lower uterine segment was incised in a transverse fashion with the scalpel. Upon entering the amniotic sac there was clear amniotic fluid. The 's head was delivered with vacuum assistance after the uterine incision was extended caudally. The nose and mouth were suctioned with bulb suction. The remainder of the body delivered without difficulty. The infant was wrapped in a warm blanket. After 1 minute, the cord was double clamped and cut. Cord bloods were obtained. The was handed off to waiting RN and RT. The placenta was delivered by expression. Pitocin was given in the IV fluids. The extension of the uterine incision was closed with #1 Chromic in a running interlocking fashion. A second layer of the same suture was used for an imbricating layer. The uterine incision [id number] was closed with #1 Chromic in a running interlocking fashion. A second layer of the same suture was used for an imbricating layer. Hemostasis was achieved. The tubes and ovaries were examined and were found to be normal. The gutters were cleared of all clots and debris. The bladder flap was reapproximated using 2-0 Vicryl in a running fashion. The parietal peritoneum was closed using 2-0 Vicryl in a running fashion. The fascia was reapproximated using 0 Vicryl in a running fashion. Hemostasis was achieved in the subcutaneous layer using the Bovie. This layer was irrigated with warm normal saline. Six simple interrupted sutures with 3-0 Vicryl were used to reapproximate the subcutaneous layer. The skin was closed with 4-0 Monocryl in a subcuticular fashion. Steri-Strips and an Aquacel dressing were placed. The uterus was expressed of a small amount of old blood. The fundus was marked at 2 cm below the umbilicus. Sponge, lap, and instrument counts were correct x2. The patient tolerated the procedure well, and was taken to PACU in stable condition. Complications: none Baby 1: Gender: Male Presentation: vertex Position: Left Occiput Anterior Placental Delivery Description: Expressed Cord Vessel Description: 3 Vessels and Clamped/Cut (After 1 minute) score (1 min): 9 score (5 min): 9 weight: 7 lb 3.9 oz Post-operative Condition: stable Disposition: PACU Aftercare: routine postop
[2023-09-09] MEDS: diphenhydrAMINE 50 MG/ML VIAL 25 MG IV (10:00)
[2023-09-09 10:56] VITALS: BP 124/71
[2023-09-09] MEDS: ACETAMINOPHEN 325 MG TABLET 650 MG PO ×2 (11:51→19:00)
[2023-09-09] MEDS: KETOROLAC 30 MG/ML VIAL IV ×2 (15:05→21:20)
[2023-09-10] MEDS: ACETAMINOPHEN 325 MG TABLET 650 MG PO ×4 (00:50→19:24)
[2023-09-10] MEDS: KETOROLAC 30 MG/ML VIAL IV (03:49)
[2023-09-10 06:40] LABS: Add Manual Diff / Slide Review NO; Basophils Absolute Auto 0 /uL (0-100); Basophils Percent Auto 0.2 % (0-2); Eosinophils Absolute Auto 100 /uL (0-450); Eosinophils Percent Auto 1.3 % (2-4); Hematocrit 27.5 % (36-46); Hemoglobin 9.5 g/dL (12.0-16.0); Lymphocytes Absolute Auto 1400 /uL (1100-4500); Lymphocytes Percent Auto 14.4 % (25-40); Mean Corpuscular HGB Conc 34.6 % (30-36); Mean Corpuscular Hemoglobin 31.6 PG (26-34); Mean Corpuscular Volume 91.2 fL (80-100); Monocytes Absolute Auto 700 /uL (0-900); Monocytes Percent Auto 7.8 % (3-14); Neutrophils Absolute Auto 7400 /uL (1500-7000); Neutrophils Percent Auto 76.3 % (50-75); Platelet Count 115 X10^3/uL (150-400); Red Blood Cell Count 3.01 X10^6/uL (4.0-5.2); Red Cell Distribution Width 14.4 % (11.6-14.8); White Blood Cell Count 9.6 X10^3/uL (4.5-11.0)
[2023-09-10] MEDS: DOCUSATE 100 MG CAPSULE PO (12:45)
[2023-09-10] MEDS: IBUPROFEN 600 MG TABLET PO ×2 (12:45→18:29)
[2023-09-10] MEDS: PRENATAL VIT,CALC/IRON/FOLIC 1 TABLET 1 TAB PO (12:45)
--- NOTE | 2023-09-10 17:56 | P.PNOB_ITS ---
Subjective - OB Subjective Patient comments: no complaints, pain well controlled, tolerating diet and flatus present baby status: doing well and nursing well [place] feeding status: exclusively breast feeding Date Patient Seen: 09/10/23 Time Patient Seen: 17:57 Interval history: Postop day # 1 status post repeat low-transverse section doing very well. going well. Voided without the catheter. Tolerating a diet. Pain is well controlled. Ambulating without assistance. Exam Vital Signs (past 8 hours): Oxygen Delivery Method Room Air Narrative Exam Narrative: Generally: Patient is sitting up in bed, holding infant, no acute distress Lungs: Clear to auscultation bilaterally Cardiovascular: Regular rate and rhythm Fundus: Firm at U -2 Incision: Clean dry and intact with Aquacel dressing Extremities: No edema, negative Homans Objective Labs 09/10/23 06:04 Labs: Laboratory Results - last 24 hr 09/10/23 06:04 WBC 9.6 RBC 3.01 L Hgb 9.5 L Hct 27.5 L MCV 91.2 MCH 31.6 MCHC 34.6 RDW 14.4 Plt Count 115 L Neut % (Auto) 76.3 H Lymph % (Auto) 14.4 L [place] % (Auto) 7.8 Eos % (Auto) 1.3 L Baso % (Auto) 0.2 Neut # (Auto) 7400 H Lymph # (Auto) 1400 [place] # (Auto) 700 Eos # (Auto) 100 Baso # (Auto) 0 Assessment & Plan Plan day: 1 plan OB: routine postop care Time Spent With Patient Time: Total time spent is greater than 50% in coordination of care (as documented) at patient's floor/unit and/or counseling patient: Time with patient: less than 15 minutes
[2023-09-10] MEDS: OXYCODONE IR 5 MG TABLET PO (19:24)
[2023-09-11] MEDS: IBUPROFEN 600 MG TABLET PO ×3 (00:36→12:13)
[2023-09-11] MEDS: ACETAMINOPHEN 325 MG TABLET 650 MG PO ×2 (02:16→08:22)
[2023-09-11] MEDS: DOCUSATE 100 MG CAPSULE PO (08:22)
[2023-09-11 08:43] VITALS: BP 115/71; PULSE 100; RESP 16; TEMP 36.9
--- NOTE | 2023-09-11 10:42 | PM.OBDS.1 ---
Discharge Providers Provider Date of admission: 09/09/23 05:46 Discharge Date: 09/11/23 Primary care physician: Lien Lai MD Consults: 09/09/23 10:02 Consult to Financial Aid Coordinator Routine Comment: Discharge provider: Samantha Hough MD Summary Hospital Course Date Patient Seen: 09/11/23 Time Patient Seen: 07:55 Diagnoses: Thirty-nine weeks' gestation Previous section Repeat low-transverse section Hospital Course: Patient is a 28-year-old 2 para 2 who presented on September 09, 2023 for a scheduled repeat low-transverse section. She underwent this procedure without complication. On postop day # 1 her Michaels catheter was removed and she was able to void spontaneously. She is ambulating independently. Her pain is well controlled. She is passing flatus. She is tolerating a diet. is going well. Peripartum Data Infant Delivery Method: Section Procedures: Spinal anesthesia Repeat low-transverse section complications: none 1: Gender: Male Disposition of : home Status at Discharge Cognitive/behavioral status at discharge: oriented Functional status at discharge: independent ambulation Overall status at discharge: patient is progressing back to baseline Time Spent with Patient Time attestation: Total time spent providing and/or coordinating discharge services: Time spent: Less than 30 minutes Objective Labs 09/10/23 06:04 Exam Vital Signs (past 8 hours): - 09/11/23 08:43 Temperature 98.4 F Pulse Rate 100 H Respiratory Rate 16 Blood Pressure 115/71 Oxygen Delivery Method Room Air Narrative Exam Narrative: Generally: Patient is sitting up in bed, nursing , no acute distress Lungs: Clear to auscultation bilaterally Cardiovascular: Regular rate and rhythm Fundus: Firm at U -2 Incision: Clean dry and intact with Aquacel dressing Extremities: No edema, negative Homans Discharge Plan Discharge Plan Patient Disposition: Home Provider Discharge Comment: Call with fever, chills, redness or drainage around the incision, or bleeding vaginally more than a pad in an hour Discharge orders & Medications Prescriptions: New ibuprofen 600 mg tablet 600 mg PO Q6H PRN (Reason: pain) Qty: 30 0RF Continued hydroxyzine HCl 25 mg tablet 25 mg PO TID PRN (Reason: anxiety) Qty: 30 0RF prenat.vits,bolivar,dio-ufoa-dhmjf Tablet 1 tab PO DAILY Discontinued acyclovir 400 mg tablet 400 mg PO TID PRN (Reason: herpes outbreak) Qty: 30 3RF Follow up/Referrals: Samantha Hough MD [Family Provider] - (Incision check w/ Dr. Hough: @ 1pm) Diet/Activity/Treatments Diet: Regular Activity: No heavy lifting Nothing in the vagina for 6 weeks Skin/Wound/Dressing Care Report to your healthcare provider any signs of infection, such as:: chills, fever, increased pain, unusual drainage and unusual redness Visit Report/Discharge Packet Instructions: DI for Stand Alone Forms: Discharge: Care, Patient Portal/API, Stroke Signs & Symptoms Discharge Data Primary Care Provider: Lien Lai
== END 2023-09-11 12:41 | disposition home or self-care (01) | DRG 540 ==
PROVIDERS: Admitting Provider Student in an Organized Health Care Education/Training Program; Family Provider Obstetrics & Gynecology; PCP Family Medicine; Referring Provider Obstetrics & Gynecology; Visit Provider Obstetrics & Gynecology
PROC: 10D00Z1 Extraction of Products of Conception, Low, Open Approach (ICD-10-PCS; CPT 59514; principal; 2023-09-09 07:45)
DX: O34.211 Maternal care for low transverse scar from previous cesarean delivery (principal); Z3A.39 39 weeks gestation of pregnancy; Z37.0 Single live birth; O98.52 Other viral diseases complicating childbirth; B00.9 Herpesviral infection, unspecified
CPT/HCPCS: 36415; 59050; 59514; 85025; 86850; 86900; 86901; J0690; J1200; J1885; J2274; J2405; J3010